=== PATIENT | male | born 1985 | race American Indian/Alaskan Native ===

== ENCOUNTER 2016-08-04 01:33 | Emergency (ER) | payer OTHER ==
[2016-08-04 06:00] VITALS: BP 143/93
[2016-08-04] MEDS ORDERED: XYLOCAINE 1% MPF 5 mL INFILTRATI ONE (06:35)
[2016-08-04] MEDS ORDERED: DECADRON IM ONE (06:35)
[2016-08-04] MEDS ORDERED: ROCEPHIN IM ONE (06:35)
--- NOTE | 2016-08-04 06:54 | Emergency Department Report ---
ED General Adult HPI - General Chief complaint: Sore Throat Stated complaint: SORE THRAOT Time Seen by Provider: 08/04/16 06:29 Source: patient Mode of arrival: Ambulatory Limitations: No Limitations - History of Present Illness Initial comments: Patient comes in the ER today with complaints of a sore throat that started yesterday. Patient states that it is uncomfortable to swallow as it feels very swollen. Patient further notes that he has been feeling very achy with chills. Patient does state that he has some sinus congestion but denies any cough, vomiting, abdominal pain. -: days(s) (1) Severity scale (0 -10): 7 Consistency: constant Improves with: none Worsens with: other (swallowing) - Related Data Home Medications Medication Instructions Recorded Confirmed Last Taken Elvitegr/Cobicist/Emtric/Tenof 1 tab PO DAILY 10/17/13 10/17/13 10/17/13 23:00 [Stribild Tablet] Previous Rx's Medication Instructions Recorded Last Taken Type Amoxicillin 1,000 mg PO BID #40 capsule 08/04/16 Unknown Rx traMADol [Ultram] 50 mg PO Q4HR PRN #20 tablet 08/04/16 Unknown Rx Allergies Allergy/AdvReac Type Severity Reaction Status Date / Time No Known Allergies Allergy Unverified 10/17/13 23:35 ED Review of Systems ROS: Stated complaint: SORE THRAOT Other details as noted in HPI Constitutional: chills, other (body aches). denies: fever Eyes: denies: eye pain, eye discharge, vision change ENT: throat pain, congestion. denies: ear pain Respiratory: denies: cough, shortness of breath, wheezing Cardiovascular: denies: chest pain, palpitations Endocrine: no symptoms reported Gastrointestinal: denies: abdominal pain, nausea, diarrhea Genitourinary: denies: urgency, dysuria Musculoskeletal: denies: back pain, joint swelling, arthralgia Skin: denies: rash, lesions Neurological: denies: headache, weakness, paresthesias Psychiatric: denies: anxiety, depression Hematological/Lymphatic: denies: easy bleeding, easy bruising ED Past Medical Hx - Past Medical History Previous Medical History?: Yes Hx HIV: Yes - Surgical History Past Surgical History?: No - Social History Smoking Status: Never Smoker Substance Use Type: None - Medications Home Medications: Home Medications Medication Instructions Recorded Confirmed Last Taken Type Elvitegr/Cobicist/Emtric/Tenof 1 tab PO DAILY 10/17/13 10/17/13 10/17/13 23:00 History [Stribild Tablet] Amoxicillin 1,000 mg PO BID #40 capsule 08/04/16 Unknown Rx traMADol [Ultram] 50 mg PO Q4HR PRN #20 tablet 08/04/16 Unknown Rx ED Physical Exam - General Limitations: No Limitations General appearance: alert, in no apparent distress - Head Head exam: Present: atraumatic, normocephalic, normal inspection - Eye Eye exam: Present: normal appearance - ENT ENT exam: Present: mucous membranes moist, TM's normal bilaterally, normal external ear exam, other (bilateral tonsils noted that are red, swollen, exudative. Uvula is midline. No visible abscess noted) - Neck Neck exam: Present: normal inspection, full ROM, lymphadenopathy. Absent: meningismus, thyromegaly - Respiratory Respiratory exam: Present: normal lung sounds bilaterally. Absent: respiratory distress, wheezes, rales, rhonchi - Cardiovascular Cardiovascular Exam: Present: regular rate, normal rhythm. Absent: systolic murmur, diastolic murmur, rubs, gallop - GI/Abdominal GI/Abdominal exam: Present: soft, normal bowel sounds. Absent: distended, tenderness, guarding - Rectal Rectal exam: Present: deferred - Extremities Exam Extremities exam: Present: normal inspection - Back Exam Back exam: Present: normal inspection - Neurological Exam Neurological exam: Present: alert, oriented X3 - Psychiatric Psychiatric exam: Present: normal affect, normal mood - Skin Skin exam: Present: warm, dry, intact, normal color. Absent: rash ED Course Vital Signs 08/04/16 08/04/16 02:13 05:59 Temperature 99.3 F 100.1 F H Pulse Rate 87 104 H Respiratory 18 18 Rate Blood Pressure 125/83 Blood Pressure 143/93 [Right] O2 Sat by Pulse 100 100 Oximetry ED Medical Decision Making - Lab Data Strep swab was positive in the ER - Medical Decision Making Patient is nontoxic and hemodynamically stable. Patient has positive strep swab are noted here in the ER. Results reviewed and discussed with patient. Patient was given IM Rocephin 1 g as well as IM Decadron 10 mg in the ER to expedite symptomatic relief. The patient was given ibuprofen in the ER for fever noted. I will continue patient on outpatient antibiotics and excuse him from work for the next 2 days. Patient is in agreement with treatment plan and patient is stable for discharge. Critical care attestation.: If time is entered above; I have spent that time in minutes in the direct care of this critically ill patient, excluding procedure time. ED Disposition Clinical Impression: Strep pharyngitis Disposition: DISCHARGED TO HOME OR SELFCARE Is pt being admited?: No Does the pt Need Aspirin: No Condition: Good Instructions: Strep Throat (ED) Prescriptions: Amoxicillin 1,000 mg PO BID #40 capsule traMADol [Ultram] 50 mg PO Q4HR PRN #20 tablet PRN Reason: Pain Referrals: PRIMARY CARE, [Primary Care Provider] - 3-5 Days Forms: Work/School Release Form(ED) Time of Disposition: 06:54
[2016-08-04] MEDS ORDERED: MOTRIN PO ONE (06:58)
== END 2016-08-04 07:30 | disposition home or self-care (01) ==
LOC: ED 01:33
DX: J02.0 Streptococcal pharyngitis (principal)
CPT/HCPCS: 87430; 96372; 99282; J0696; J1100